=== PATIENT | female | born 1945 | race Caucasian/White ===

== ENCOUNTER 2020-01-07 10:51 | Day surgery (SDC) | payer MEDICARE, OTHER ==
[~2020-01-07 10:51] MED LIST: Cefuroxime 10 MG/ML SYRINGE EYERT SCH; Lidocaine 1% PF 2 ML SDV INJECT SCH; Pilocarpine 4% Ophth Soln 15 ML Bot EYERT SCH
[2020-01-07] MEDS: Polymyxin B/Trimethoprim 10 ML Bottle EYERT SCH ×3 (10:58→12:44)
[2020-01-07] MEDS: Brimonidine 0.2% Ophth Soln 5 ML Bottle EYERT SCH ×3 (11:05→12:44)
[2020-01-07] MEDS: Phenylephrine 2.5% Ophth Soln 2 ML Bot EYERT SCH ×5 (11:10→12:20)
--- NOTE | 2020-01-07 11:13 | PCM.PREANE ---
Preanesthetic Assessment - Anesthesia/Transfusion/Family Hx Anesthesia History: Prior Anesthesia Without Reaction Family History of Anesthesia Reaction: No Transfusion History: No Prior Transfusion(s) - Review of Systems General: No Symptoms Pulmonary: No Symptoms Cardiovascular: Other (HTN on meds) Gastrointestinal: Other (GERD, on meds) Neurological: No Symptoms Other: Reports: Diabetes (diet controlled), Thyroid Problems - Physical Assessment NPO Status Date: 01/06/20 NPO Status Time: 22:00 Vital Signs: Last Vital Signs Temp 36.9 C 01/07/20 10:50 Pulse 58 L 01/07/20 10:50 Resp 16 01/07/20 10:50 BP 135/74 01/07/20 10:50 Pulse Ox 97 01/07/20 10:50 Height: 1.63 m Weight: 81.193 kg ASA Class: 2 Mental Status: Alert & Oriented x3 Airway Class: Mallampati = 2 Dentition: Reports: Normal Dentition Thyro-Mental Finger Breadths: 3 Mouth Opening Finger Breadths: 3 ROM/Head Extension: Full Lungs: Clear to Auscultation, Normal Respiratory Effort Cardiovascular: Regular Rate, Regular Rhythm - Allergies Allergies/Adverse Reactions: Allergies Allergy/AdvReac Type Severity Reaction Status Date / Time No Known Allergies Allergy Verified 01/06/20 11:31 - Blood Blood Available: No Product(s) Available: None - Anesthesia Plan Pre-Op Medication Ordered: None Med Last Dose Date: 01/07/20 Med Last Dose Time: 05:15 - Acknowledgements Anesthesia Type Planned: MAC Pt an Appropriate Candidate for the Planned Anesthesia: Yes Alternatives and Risks of Anesthesia Discussed w Pt/Guardian: Yes Pt/Guardian Understands and Agrees with Anesthesia Plan: Yes PreAnesthesia Questionnaire - HOME MEDS Home Medications: Home Meds Biotin 2,500 mcg PO DAILY 01/06/20 [History] Bisoprolol/Hydrochlorothiazide [Bisoprolol-Hctz 2.5-6.25 mg Tb] 1 tab PO DAILY 01/06/20 [History] Calcium Carb, Citrate/Vit D3 [Citracal + D ER] 1 tab PO DAILY 01/06/20 [History] Glucosamine [Glucosamine Sulfate] 500 mg PO DAILY 01/06/20 [History] Levothyroxine 112 mcg PO DAILY 01/06/20 [History] Multivitamin 1 tab PO DAILY 01/06/20 [History] Omeprazole 40 mg PO DAILY 01/06/20 [History] Pravastatin Sodium 15 mg PO DAILY 01/06/20 [History] - CURRENT (IN HOUSE) MEDS Current Meds: Current Medications Brimonidine Tartrate (Alphagan 0.2% Oph Soln) 0 ml EYERT ASDIRECTED VANESSA Stop: 01/07/20 20:00 Last Admin: 01/07/20 11:05 Dose: 1 drop Documented by: Cefuroxime Sodium (Zinacef) 0 mg EYERT ASDIRECTED VANESSA Stop: 01/07/20 20:00 Lidocaine HCl (Xylocaine-Mpf 1%) 0 ml INJECT ASDIRECTED VANESSA Stop: 01/07/20 20:00 Phenylephrine HCl (Don-Synephrine 2.5% Oph Soln) 0 ml EYERT ASDIRECTED VANESSA Stop: 01/07/20 20:00 Last Admin: 01/07/20 11:10 Dose: 1 drop Documented by: Pilocarpine HCl (Pilocar 4% Oph Soln) 0 ml EYERT ASDIRECTED VANESSA Stop: 01/07/20 20:00 Polymyxin/Trimethoprim Sulfate (Polytrim Ophth Soln) 0 ml EYERT ASDIRECTED VANESSA Stop: 01/07/20 20:00 Last Admin: 01/07/20 10:58 Dose: 1 drop Documented by: Tetracaine HCl (Tetracaine 0.5% Steri-Unit Mildred) 0 ml EYEBOTH ASDIRECTED VANESSA Stop: 01/07/20 20:00 Tropicamide (Mydriacyl 1% Oph Soln) 0 ml EYERT ASDIRECTED VANESSA Stop: 01/07/20 20:00
[2020-01-07] MEDS: Tropicamide 1% Ophth Soln 15 ML Bottle EYERT SCH ×4 (11:16→11:57)
[2020-01-07] MEDS: Tetracaine HCl/PF 0.5% 4 ML Bottle EYEBOTH SCH ×2 (12:11→12:32)
--- NOTE | 2020-01-07 12:48 | PCM48HPAN ---
Post Anesthesia Note - EVALUATION WITHIN 48HRS OF ANESTHETIC Vital Signs in Normal Range: Yes Patient Participated in Evaluation: Yes Respiratory Function Stable: Yes Airway Patent: Yes Cardiovascular Function Stable: Yes Hydration Status Stable: Yes Pain Control Satisfactory: Yes Nausea and Vomiting Control Satisfactory: Yes Mental Status Recovered: Yes Vital Signs: Last Vital Signs Temp 36.9 C 01/07/20 10:50 Pulse 58 L 01/07/20 10:50 Resp 16 01/07/20 10:50 BP 135/74 01/07/20 10:50 Pulse Ox 97 01/07/20 10:50
== END 2020-01-07 12:57 | disposition home or self-care (01) ==
LOC: JD.SDS 10:51
PROVIDERS: ATTEND Ophthalmology
DX: E11.36 Type 2 diabetes mellitus with diabetic cataract (principal); H25.813 Combined forms of age-related cataract, bilateral; H16.103 Unspecified superficial keratitis, bilateral; H16.223 Keratoconjunctivitis sicca, not specified as Sjogren's, bilateral; H02.834 Dermatochalasis of left upper eyelid; H02.831 Dermatochalasis of right upper eyelid; E78.00 Pure hypercholesterolemia, unspecified; I10 Essential (primary) hypertension; Z79.899 Other long term (current) drug therapy
CPT/HCPCS: 66984; C1780; J0697; J2001

== ENCOUNTER 2020-02-06 09:26 | Day surgery (SDC) | payer MEDICARE, OTHER ==
[~2020-02-06 09:26] MED LIST changes: +Cefuroxime 10 MG/ML SYRINGE EYELF SCH; -Cefuroxime 10 MG/ML SYRINGE EYERT SCH; +Pilocarpine 4% Ophth Soln 15 ML Bot EYELF SCH; -Pilocarpine 4% Ophth Soln 15 ML Bot EYERT SCH
--- NOTE | 2020-02-06 09:32 | PCM.PREANE ---
Preanesthetic Assessment - Procedure Proposed Procedure: cataract left - Anesthesia/Transfusion/Family Hx Anesthesia History: Prior Anesthesia Without Reaction Family History of Anesthesia Reaction: No Transfusion History: No Prior Transfusion(s) - Review of Systems General: No Symptoms Pulmonary: No Symptoms Cardiovascular: No Symptoms Gastrointestinal: No Symptoms Neurological: No Symptoms Other: Reports: Diabetes (diet controlled), Thyroid Problems - Physical Assessment NPO Status Date: 02/05/20 NPO Status Time: 20:00 Vital Signs: 126/65 52 99% 97.6 16 Height: 5 ft 4 in Weight: 79.832 kg ASA Class: 2 Mental Status: Alert & Oriented x3 Airway Class: Mallampati = 1 Dentition: Reports: Normal Dentition Thyro-Mental Finger Breadths: 3 Mouth Opening Finger Breadths: 3 ROM/Head Extension: Full Lungs: Clear to Auscultation, Normal Respiratory Effort Cardiovascular: Regular Rate, Regular Rhythm - Allergies Allergies/Adverse Reactions: Allergies Allergy/AdvReac Type Severity Reaction Status Date / Time No Known Allergies Allergy Verified 02/05/20 15:21 - Blood Blood Available: No - Anesthesia Plan Beta [place]: Bisoprolol Med Last Dose Date: 02/06/20 Med Last Dose Time: 06:20 - Acknowledgements Anesthesia Type Planned: MAC Pt an Appropriate Candidate for the Planned Anesthesia: Yes Alternatives and Risks of Anesthesia Discussed w Pt/Guardian: Yes Pt/Guardian Understands and Agrees with Anesthesia Plan: Yes PreAnesthesia Questionnaire Cardiovascular History: Reports: High Cholesterol, Hypertension Respiratory History: Reports: None Gastrointestinal History: Reports: GERD (occ) Oncologic (Cancer) History: Reports: None - SUBSTANCE USE Tobacco Use Status *Q: Never Tobacco User Tobacco Use Within Last Twelve Months: No Second Hand Smoke Exposure: No Days Per Week of Alcohol Use: 1 Number of Drinks Per Day: 1 Total Drinks Per Week: 1 Recreational Drug Use History: No - HOME MEDS Home Medications: Home Meds Biotin 2,500 mcg PO DAILY 01/06/20 [History] Bisoprolol/Hydrochlorothiazide [Bisoprolol-Hctz 2.5-6.25 mg Tb] 1 tab PO DAILY 01/06/20 [History] Calcium Carb, Citrate/Vit D3 [Citracal + D ER] 1 tab PO DAILY 01/06/20 [History] Glucosamine [Glucosamine Sulfate] 500 mg PO DAILY 01/06/20 [History] Levothyroxine 112 mcg PO DAILY 01/06/20 [History] Multivitamin 1 tab PO DAILY 01/06/20 [History] Omeprazole 40 mg PO DAILY 01/06/20 [History] Pravastatin Sodium 15 mg PO DAILY 01/06/20 [History] - CURRENT (IN HOUSE) MEDS Current Meds: Current Medications Brimonidine Tartrate (Alphagan 0.2% Ophth Soln) 0 ml EYELF ASDIRECTED VANESSA Stop: 02/06/20 18:00 Cefuroxime Sodium (Zinacef) 0 mg EYELF ASDIRECTED VANESSA Stop: 02/06/20 18:00 Lidocaine HCl (Xylocaine-Mpf 1%) 0 ml INJECT ASDIRECTED VANESSA Stop: 02/06/20 18:00 Phenylephrine HCl (Don-Synephrine 2.5% Ophth Soln) 0 ml EYELF ASDIRECTED VANESSA Stop: 02/06/20 18:00 Pilocarpine HCl (Pilocar 4% Ophth Soln) 0 ml EYELF ASDIRECTED VANESSA Stop: 02/06/20 18:00 Polymyxin/Trimethoprim Sulfate (Polytrim Ophth Soln) 0 ml EYELF ASDIRECTED VANESSA Stop: 02/06/20 18:00 Tetracaine HCl (Tetracaine 0.5% Steri-Unit Mildred) 0 ml EYEBOTH ASDIRECTED VANESSA Stop: 02/06/20 18:00 Tropicamide (Mydriacyl 1% Ophth Soln) 0 ml EYELF ASDIRECTED VANESSA Stop: 02/06/20 18:00
[2020-02-06] MEDS: Polymyxin B/Trimethoprim 10 ML Bottle EYELF SCH ×3 (09:50→11:15)
[2020-02-06] MEDS: Brimonidine 0.2% Ophth Soln 5 ML Bottle EYELF SCH ×3 (09:55→11:15)
[2020-02-06] MEDS: Phenylephrine 2.5% Ophth Soln 2 ML Bot EYELF SCH ×5 (10:00→10:57)
[2020-02-06] MEDS: Tropicamide 1% Ophth Soln 15 ML Bottle EYELF SCH ×4 (10:05→10:37)
[2020-02-06] MEDS: Tetracaine HCl/PF 0.5% 4 ML Bottle EYEBOTH SCH ×4 (10:46→11:04)
--- NOTE | 2020-02-06 11:20 | PCM48HPAN ---
Post Anesthesia Note - EVALUATION WITHIN 48HRS OF ANESTHETIC Vital Signs in Normal Range: Yes Patient Participated in Evaluation: Yes Respiratory Function Stable: Yes Airway Patent: Yes Cardiovascular Function Stable: Yes Hydration Status Stable: Yes Pain Control Satisfactory: Yes Nausea and Vomiting Control Satisfactory: Yes Mental Status Recovered: Yes Vital Signs: Last Vital Signs Temp 36.4 C 02/06/20 09:20 Pulse 52 L 02/06/20 09:20 Resp 16 02/06/20 09:20 BP 126/65 02/06/20 09:20 Pulse Ox 99 02/06/20 09:20
== END 2020-02-06 11:29 | disposition home or self-care (01) ==
LOC: JD.SDS 09:26
PROVIDERS: ATTEND Ophthalmology
DX: E11.36 Type 2 diabetes mellitus with diabetic cataract (principal); H25.812 Combined forms of age-related cataract, left eye; H02.831 Dermatochalasis of right upper eyelid; H02.834 Dermatochalasis of left upper eyelid; H16.103 Unspecified superficial keratitis, bilateral; H16.223 Keratoconjunctivitis sicca, not specified as Sjogren's, bilateral; E78.00 Pure hypercholesterolemia, unspecified; E07.9 Disorder of thyroid, unspecified; I11.9 Hypertensive heart disease without heart failure; K21.9 Gastro-esophageal reflux disease without esophagitis; Z79.899 Other long term (current) drug therapy; Z79.890 Hormone replacement therapy; Z79.84 Long term (current) use of oral hypoglycemic drugs; Z96.1 Presence of intraocular lens; Z90.89 Acquired absence of other organs
CPT/HCPCS: 66984; J0697; J2001; V2632